=== PATIENT | male | born 1960 | race Caucasian/White ===

== ENCOUNTER 2019-08-15 00:25 | Inpatient (IN) ==
[2019-08-15] MEDS ORDERED: Ondansetron 4 MG/2 ML VIAL IVP PRN (01:50)
[2019-08-15] MEDS ORDERED: Naloxone 0.4 MG/ML INJ IVP PRN (01:50)
[2019-08-15] MEDS ORDERED: Albuterol 2.5 MG/3 ML NEBULIZER IH PRN (01:54)
[2019-08-15] MEDS ORDERED: D5% in 0.45% NACL 1,000 ML IVC SCH (02:00)
[2019-08-15 02:28] LABS: Basophils % 0.1 %; Hematocrit 28.5 % (37.5-50.1); Hemoglobin 8.9 g/dL (12.9-16.9); Immature Granulocytes % 1.9 % (0-4); Lymphocytes # 0.3 K/mcL (0.6-4.6); Lymphocytes % 2.5 %; Mean Corpuscular HGB Conc 31.2 g/dL (31.6-35.5); Mean Corpuscular Hemoglobin 32.1 pg (28.0-33.3); Mean Corpuscular Volume 102.9 fL (83.0-100.0); Mean Platelet Volume 10.3 fL (9.4-12.4); Monocytes # 0.5 K/mcL (0.0-1.3); Monocytes % 3.5 %; Neutrophils # 12.5 K/mcL (1.6-8.9); Platelet Count 144 K/mcL (140-400); Red Blood Count 2.77 M/mcL (4.19-5.50); Red Cell Distribution Width 15.4 % (11.5-14.5); White Blood Count 13.6 K/mcL (4.3-11.1)
[2019-08-15 02:44] LABS: Albumin 2.9 g/dL (3.5-5.7); Albumin/Globulin Ratio 1.4 (1.1-2.2); Bilirubin,Total 0.7 mg/dL (0.3-1.0); Calcium 7.3 mg/dL (8.6-10.3); Globulin 2.1 g/dL (2.4-3.5); Magnesium 2.3 mg/dL (1.6-2.6); Phosphorous 6.3 mg/dL (2.7-4.5); Potassium 3.9 mEq/L (3.5-5.1)
[2019-08-15 03:38] LABS: Bilirubin,Urine Negative (Negative); Blood,Urine Moderate (Negative); Clarity,Urine Slightly Cloudy (Clear); Glucose,Urine (UA) Normal (Normal); Ketones,Urine Negative (Negative); Leukocyte Esterase,Urine Negative (Negative); Nitrite,Urine Negative (Negative); PH,Urine 5.5 pH Units (5.0-8.0); Protein,Urine Negative (Neg-Trace); Urobilinogen,Urine Normal (Normal)
[2019-08-15 03:39] LABS: Color,Urine Light Yellow (Yellow)
[2019-08-15 03:40] LABS: Amorphous Sediment,Urine Few per hpf (Few)
[2019-08-15] MEDS ORDERED: Dextrose Gel 15 GM/37.5 ML TUBE PO PRN ×2 (03:51)
[2019-08-15] MEDS ORDERED: *HR* Dextrose 50 % in Water (Syg) 50 ML SYRINGE IVP PRN (03:51)
[2019-08-15] MEDS ORDERED: D5% in Water 1,000 ML IVC PRN (03:51)
[2019-08-15] MEDS ORDERED: 0.9 % Sodium Chloride 500 ML IVC ONE (04:36)
[2019-08-15] MEDS ORDERED: Hydrocortisone Sodium Succ 100 MG/2 ML VIAL IVP ONE (04:36)
[2019-08-15] MEDS ORDERED: *HR* Heparin 5,000 UNIT/ML VIAL SQ SCH (06:00)
[2019-08-15 06:58] LABS: INR 2.3; Prothrombin Time 26.5 Seconds (9.4-12.1)
[2019-08-15 07:01] LABS: Activated Partial Thrombo Time 37.3 Seconds (26.0-36.0)
[2019-08-15] MEDS: Budesonide/Formoterol 160/4.5 1 PUFF INH IH SCH ×2 (08:51→21:28)
[2019-08-15] MEDS ORDERED: D5% in Water 1,000 ML IVC SCH ×2 (09:00→19:15)
[2019-08-15] MEDS ORDERED: Hydrocortisone 10 MG TABLET PO SCH (09:00)
[2019-08-15] MEDS ORDERED: Megestrol Acetate 400 MG/10 ML UDC PO SCH (10:15)
[2019-08-15] MEDS: Ferrous Sulfate Oral Soln 300 MG/5 ML UDC GTUBE SCH (10:44)
[2019-08-15] MEDS: Megestrol Acetate 400 MG/10 ML UDC GTUBE SCH (10:44)
[2019-08-15] MEDS: D5% in Water 1,000 ML IVC SCH ×2 (10:51→17:34)
[2019-08-15 11:06] LABS: Albumin 2.8 g/dL (3.5-5.7); Albumin/Globulin Ratio 1.2 (1.1-2.2); Bilirubin,Total 0.7 mg/dL (0.3-1.0); Calcium 7.3 mg/dL (8.6-10.3); Chol/HDL Ratio 2.3 (0-4.9); Globulin 2.3 g/dL (2.4-3.5); Magnesium 2.1 mg/dL (1.6-2.6); Phosphorous 5.5 mg/dL (2.7-4.5); Potassium 3.6 mEq/L (3.5-5.1); Total Protein 5.1 g/dL (6.4-8.9)
[2019-08-15] MEDS: Hydrocortisone Sodium Succ 100 MG/2 ML VIAL IVP SCH (17:34)
[2019-08-15 18:35] LABS: Calcium 7.3 mg/dL (8.6-10.3); Phosphorous 5.1 mg/dL (2.7-4.5); Potassium 3.9 mEq/L (3.5-5.1)
[2019-08-15] MEDS: Mirtazapine 15 MG TABLET PO SCH (22:18)
[2019-08-16] MEDS: Hydrocortisone Sodium Succ 100 MG/2 ML VIAL IVP SCH ×4 (00:07→23:43)
[2019-08-16 05:25] LABS: Hemoglobin 9.5 g/dL (12.9-16.9); Mean Corpuscular HGB Conc 31.7 g/dL (31.6-35.5); Mean Corpuscular Hemoglobin 31.4 pg (28.0-33.3); Mean Platelet Volume 10.2 fL (9.4-12.4); Red Blood Count 3.03 M/mcL (4.19-5.50); Red Cell Distribution Width 15.2 % (11.5-14.5); White Blood Count 8.1 K/mcL (4.3-11.1)
[2019-08-16 05:27] LABS: Platelet Count 87 K/mcL (140-400)
[2019-08-16 05:39] LABS: Calcium 7.2 mg/dL (8.6-10.3); Phosphorous 4.8 mg/dL (2.7-4.5); Potassium 3.5 mEq/L (3.5-5.1)
[2019-08-16] MEDS: D5% in Water 1,000 ML IVC SCH ×2 (06:16→06:46)
[2019-08-16] MEDS: Megestrol Acetate 400 MG/10 ML UDC GTUBE SCH (08:10)
[2019-08-16] MEDS: Ferrous Sulfate Oral Soln 300 MG/5 ML UDC GTUBE SCH (08:11)
[2019-08-16] MEDS: Budesonide/Formoterol 160/4.5 1 PUFF INH IH SCH ×2 (09:58→21:19)
[2019-08-16] MEDS: D5% in 0.45% NACL 1,000 ML IVC SCH ×2 (10:03→23:44)
[2019-08-16] MEDS: Mirtazapine 15 MG TABLET PO SCH (20:42)
[2019-08-17 06:36] LABS: Hematocrit 31.6 % (37.5-50.1); Hemoglobin 10.3 g/dL (12.9-16.9); Mean Corpuscular HGB Conc 32.6 g/dL (31.6-35.5); Mean Corpuscular Hemoglobin 31.7 pg (28.0-33.3); Mean Corpuscular Volume 97.2 fL (83.0-100.0); Mean Platelet Volume 10.1 fL (9.4-12.4); Platelet Count 79 K/mcL (140-400); Red Blood Count 3.25 M/mcL (4.19-5.50); Red Cell Distribution Width 15.1 % (11.5-14.5); White Blood Count 7.3 K/mcL (4.3-11.1)
[2019-08-17 06:50] LABS: Calcium 7.1 mg/dL (8.6-10.3); Magnesium 2.1 mg/dL (1.6-2.6); Potassium 3.4 mEq/L (3.5-5.1)
[2019-08-17 07:23] VITALS: BP 109/75
[2019-08-17] MEDS: Megestrol Acetate 400 MG/10 ML UDC GTUBE SCH (07:40)
[2019-08-17] MEDS: Ferrous Sulfate Oral Soln 300 MG/5 ML UDC GTUBE SCH (07:40)
[2019-08-17] MEDS: Hydrocortisone Sodium Succ 100 MG/2 ML VIAL IVP SCH (07:41)
[2019-08-17] MEDS: Budesonide/Formoterol 160/4.5 1 PUFF INH IH SCH (09:33)
== END 2019-08-17 11:15 | disposition hospice, home (50) | DRG 426 ==
LOC: PREOBSVTOIN 00:30 → INTOOBSV 00:31 → INPGRE 00:31
PROVIDERS: ADMIT Family Medicine; ATTEND Family Medicine